=== PATIENT | female | born 1960 | race Caucasian/White ===

== ENCOUNTER 2024-12-03 09:27 | Outpatient (OUT) | payer OTHER, SELFPAY ==
[2024-12-03 12:43] LABS: Chol HDL Ratio 1.8; Cholesterol 162 mg/dL (<=200); HDL Cholesterol 89 mg/dL (40-60); Triglycerides 60 mg/dL (<=150)
== END 2024-12-03 09:28 | disposition home or self-care (01) ==
LOC: LAB 09:32
DX: Z13.220 Encounter for screening for lipoid disorders (principal)
CPT/HCPCS: 36415; 80061